=== PATIENT | female | born 1950 | race Caucasian/White ===

== ENCOUNTER 2017-07-07 06:04 | Day surgery (SDC) | payer MEDICARE ==
[~2017-07-07] VITALS: Ht 165.1 cm; Wt 102.1 kg
[~2017-07-07 06:04] MED LIST: ALENDRONATE70 MG PO; ALPHAGAN P0.1 % OU; CALCI23 PO; FISH OIL1 CAP PO; HYDROCO/APAP1 T10 PO; KP VITAMIN E100 UNIT PO; LATANOPROST0.005 % OU; LOSARTAN POTASS50 MG PO; MEDDOSEPAK PO; MULTIVITAMI9 PO; PROAIR HFA IN
[2017-07-07 08:24] VITALS: BP 113/68
== END 2017-07-07 08:33 | disposition home or self-care (01) ==
LOC: ENDO 06:04 → ORM 07:00 → ENDO 07:00
PROVIDERS: ATTEND Internal Medicine Gastroenterology
PROC: 0DBN8ZX Excision of Sigmoid Colon, Via Natural or Artificial Opening Endoscopic, Diagnostic (ICD-10-PCS; principal; 2017-07-07)
DX: K63.5 Polyp of colon (principal); K64.8 Other hemorrhoids; I10 Essential (primary) hypertension; J45.909 Unspecified asthma, uncomplicated; K64.4 Residual hemorrhoidal skin tags; Z85.43 Personal history of malignant neoplasm of ovary; Z83.71 Family history of colonic polyps; Z86.010 Personal history of colon polyps